=== PATIENT | female | born 1985 | race Caucasian/White ===

== ENCOUNTER 2019-04-17 10:45 | Emergency (ER) | payer OTHER, SELFPAY ==
[2019-04-17 10:57] VITALS: BP 162/87; PULSE 104; RESP 20; TEMP 36.9; O2SAT 100
--- NOTE | 2019-04-17 11:01 | ED.SKABFB ---
HPI - Skin/Abscess/Foreign Bdy General Chief complaint: Skin/Abscess/Foreign Body Stated complaint: nose sore Time Seen by Provider: 04/17/19 11:01 Source: patient and RN notes reviewed History of Present Illness HPI narrative: Patient is a 33-year-old female that presents the urgent care with complaints of nasal sores. Patient states that she has had them for approximately 3 days to 1 week. States the right nare is less sore but is noted some redness and nasal drainage. States that the left nare continues to have the large painful sore. 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 Patient states in the past she is gotten oral antibiotic and a cream which did seem to clear them up fairly quickly. No other acute complaints. No acute distress noted. Patient aware the plan of care. Related Data Home Medications Medication Instructions Recorded Confirmed levothyroxine 04/17/19 Allergies Allergy/AdvReac Type Severity Reaction Status Date / Time No Known Allergies Allergy Verified 04/17/19 11:00 Review of Systems Review of Systems: Narrative: CONSTITUTIONAL: Denies fever, chills, or sweats. EYES: Denies visual changes, redness, or discharge. ENT: Reports of bilateral nasal sores CARDIOVASCULAR: Denies chest pain, palpitations, or edema. RESPIRATORY: Denies cough or dyspnea. GASTROINTESTINAL: Denies abdominal pain, nausea, vomiting, or diarrhea. GENITOURINARY: Denies dysuria or hematuria. SKIN: Denies rash or itching. MUSCULOSKELETAL: Denies back pain, joint pain, or myalgia. NEUROLOGIC: Denies headache, numbness, or weakness. All other systems reviewed are negative, except as documented in HPI. PMFSH Comments At the time of my signature, I reviewed and agree with the nursing past medical, surgical, social, and family history. There is no relevant family history pertinent to the patient complaint. Exam Narrative: Exam Narrative: GENERAL: This is a well-nourished, well-developed patient, in no apparent distress. HEAD: normocephalic, atraumatic. EYES: PERRL. Sclera clear/white. Vision is grossly intact. EARS: External ears normal NOSE: External nose normal with no obvious nasal discharge, bilateral erythemic nares with notable impetigo to the left nare with clear rhinorrhea THROAT: Mucous membranes moist NECK: Neck supple, non-tender without lymphadenopathy, masses or thyromegaly. CARDIOVASCULAR: Regular rate and rhythm without murmurs, gallops, or rubs. RESPIRATORY: Clear to auscultation. Breath sounds equal bilaterally. No wheezes, rales, or rhonchi. SKIN: warm, intact with no suspicious lesions or rash, good texture and turgor. NEURO: awake, alert, and oriented to person, place and time. There were no obvious focal neurologic abnormalities. EXTREMITIES: No clubbing, cyanosis, or edema. Course Vital Signs Vital signs: Vital Signs Temperature 98.4 F 04/17/19 10:57 Pulse Rate 104 H 04/17/19 10:57 Respiratory Rate 20 04/17/19 10:57 Blood Pressure 162/87 H 04/17/19 10:57 Pulse Oximetry 100 04/17/19 10:57 Temperature 98.4 F 04/17/19 10:57 Pulse Rate 104 H 04/17/19 10:57 Respiratory Rate 20 04/17/19 10:57 Blood Pressure 162/87 H 04/17/19 10:57 Pulse Oximetry 100 04/17/19 10:57 Reviewed-patient is informed that they may have pre-hypertension or hypertension based on a blood pressure reading in the department. I recommend the patient call the primary care provider listed on their discharge instructions or a physician of their choice this week to arrange follow-up for further evaluation of possible pre-hypertension or hypertension. MDM - Skin/Abscess/Foreign Bdy MDM Narrative Medical decision making narrative: Advised the patient to use Flonase and normal saline spray in the nose when being in dry environments or at the start of possible impetigo. Make sure to clean the applicator tips after each use. Use cream as directed to affected ar
== END 2019-04-17 11:19 | disposition home or self-care (01) ==
PROVIDERS: Emergency Provider Nurse Practitioner Family
DX: L01.00 Impetigo, unspecified (principal)
CPT/HCPCS: 99213; G0463

== ENCOUNTER 2020-07-15 17:40 | Emergency (ER) | payer OTHER, SELFPAY ==
[2020-07-15 17:49] VITALS: BP 137/89; PULSE 93; RESP 20; TEMP 37.7; O2SAT 99
--- NOTE | 2020-07-15 17:53 | ED_ITS ---
HPI - Skin/Abscess/Foreign Bdy General Chief complaint: Skin/Abscess/Foreign Body Stated complaint: Rash on Face Source: patient and RN notes reviewed Limitations: no limitations History of Present Illness HPI narrative: The patient, previously mostly healthy, presents with skin eruption. Patient states she has 1/2-week history-- after returning from [place] vacation --of pink, raised, discrete eruption on her face by her right cheeks. She is concerned she may have zoster, but there is early involvement or spread to the opposite side. No fever, discharge, abscess/induration, streaking. Discussed possible causes [environmental -insect, hot tubs, acquired (make-up), infectious-bacterial, viral, etc.] and will treat broadly providing clindamycin 300 3times daily, Valtrex 1 g 3 times daily. Related Data Home Medications Medication Instructions Recorded Confirmed buspirone 10 mg DAILY 07/15/20 07/15/20 levothyroxine 50 mcg DAILY 07/15/20 07/15/20 Allergies Allergy/AdvReac Type Severity Reaction Status Date / Time No Known Allergies Allergy Verified 04/17/19 11:00 Review of Systems Review of Systems: Narrative: General/Constitutional: No weight loss,fever Eyes: N0: Redness,discharge Ears/Nose/Throat: No: Epistaxis,ear discharge Respiratory: Denies: Hemoptysis Gastrointestinal: No Vomiting, Bleeding-rectal Skin: No Lumps, eruption Neurologic: No Focal Weakness,Sz Hematologic: Denies: Petechiae/Purpura Psychiatric: No: Suicida ideationl All Other Systems: Reviewed and Negative PMFSH Social History Social History Gender identity (if verbalized by the patient): Female Comments At time of signature, agree with nursing past medical, surgical, social and family history. There is no relevant family history pertinent to the presenting complaint Exam Narrative: Exam Narrative: General Appearance: Well-nourished, Normocephalic Eye: PERRLA, Conjunctiva clear Skin: Warm, Dry ; macular papular skin eruption right>> left maxilla Mouth/Throat: Normal appearing Neck Exam: Supple Respiratory: Airway patent, No respiratory distress Musculoskeletal: Moves all extremities, Non tender Neurological: A&O x3 Psychiatric: Normal mood, Normal affect Course Vital Signs Vital signs: Vital Signs Temperature 99.9 F H 07/15/20 17:49 Pulse Rate 93 07/15/20 17:49 Respiratory Rate 20 06/05/21 17:49 Blood Pressure 137/89 07/15/20 17:49 Pulse Oximetry 99 07/15/20 17:49 Temperature 99.9 F H 07/15/20 17:49 Pulse Rate 93 07/15/20 17:49 Respiratory Rate 20 07/15/20 17:49 Blood Pressure 137/89 07/15/20 17:49 Pulse Oximetry 99 07/15/20 17:49 Discharge Plan Discharge Clinical Impression: Folliculitis, Pruritic condition Patient Disposition: Home, Self-Care Condition: Stable Instructions: Folliculitis (ED) Additional Instructions: Keep photo log of area.See PMD if not improved Take clindamycin with food, stop if diarrhea occurs Prescriptions: No Action levothyroxine 50 mcg tablet 50 mcg DAILY RF: 0 buspirone 10 mg tablet 10 mg DAILY RF: 0 Follow-up/Referrals: PHYSICIAN,PLANT PROTECTION OFFICER [Primary Care Provider] -
== END 2020-07-15 18:00 | disposition home or self-care (01) ==
PROVIDERS: Emergency Provider Emergency Medicine
DX: L73.9 Follicular disorder, unspecified (principal); L29.9 Pruritus, unspecified; E03.9 Hypothyroidism, unspecified; F41.9 Anxiety disorder, unspecified
CPT/HCPCS: 99211; G0463

== ENCOUNTER 2022-03-21 01:00 | Day surgery (SDC) | payer OTHER, SELFPAY ==
--- NOTE | 2022-03-11 11:14 | PC.NURSE ---
Report to the Outpatient Waiting Room, entrance under the green pavilion located off [address], at time _0600 on date __03/21/22 . Planned Procedure Time: _0730 . Time changes happen often and if your time is changed the preop area will call you the afternoon before. - You and your visitor will be asked to self-screen and do not enter if you have any COVID symptoms. - Only one visitor is requested with a max of two and NO children visitors are allowed at this time. - The patient visitor may be requested to leave or wait in car when not with patient due to distancing restrictions. - A mask is optional within the hospital at this time. Patients may have clear liquids (water, carbonated beverages, clear teas, apple juice) until 3 hours prior to surgery with a maximum of 20 ounces. - No food from midnight until time of surgery - Infants may have breast milk until 4 hours before surgery, formula 6 hours prior to surgery. - Children will be allowed to drink immediately following surgery. If applicable, please bring a bottle or sippy cup to assist with drinking. Juice, water, soda, and popsicles are readily available. For infants on formula, please bring formula the day of surgery. Pacifiers are allowed. Take the following medications with a SIP of water the morning of surgery: __BUPROPION,BUSPIRONE AND LEVOTHYROXINE DO NOT STOP ANY OF YOUR OTHER PRESCRIPTION MEDICATIONS PRIOR TO SURGERY ?EXCEPT THE FOLLOWING Medications to discontinue per physician VITAMIN D 3 3 DAYS PRE OP. LAST DOSE 03/17/22 Date to take last dose Please no make-up, nail palestinian, hairspray, perfume, deodorant, or body powder the day of surgery. No jewelry (including any body piercings) or valuables the day of surgery, leave them at home. Please take a shower or bath the night before, or the morning of, surgery with an antibacterial soap. Wear comfortable, loose fitting clothing. Children are encouraged to wear pajamas. - Jewelry must be removed prior to entering the operating room. Rings and piercings that are not removed may be cut off. - The hospital will not accept responsibility for valuables. - Please leave all valuables, including medications, at home the day of surgery. If you are going home after surgery, a licensed tilt tray driver must drive you home. - NO public transportation without another adult if you receive anesthesia. - We recommend that an adult stay with you for 24 hours following discharge. - We also recommend that you do not drive, make important decision, drink alcoholic beverages, or take any drugs that were not prescribed by your health care provider for at least 24 hours after your discharge time. Follow any additional instructions given to you from your surgeon. If you or anyone in your household have experienced Covid symptoms in the past week, please notify your surgeon or the nurse liaison at the phone number below for possible testing. Telephone instructions given to _PATIENT and asked if any additional questions and then verbalized understanding. Patient advised to call surgeon office or pre surgery nurse liaison [phone] if any additional questions.
[2022-03-11 11:21] VITALS: BMI 28.8
[2022-03-21 06:29] VITALS: BP 136/97; PULSE 82; RESP 16; TEMP 36.4; O2SAT 100
--- NOTE | 2022-03-21 06:40 | P.PNAN_ITS ---
Anes - Initial Pre Proc Eval Procedure: Operation Date: 03/21/22 07:30 Proposed Procedures p Left Open Carpal Tunnel Release - Kj Rios MD Date/Time: 03/21/22 06:40 Surgeon: Kj Rios MD Pre Op Diagnosis: Left carpal tunnel syndrome Patient Data Age: 36 Gender: F Height: 1.73 m Weight: 84.8 kg Last Vital Signs Temp 36.4 C 03/21/22 06:29 Pulse 82 03/21/22 06:29 Resp 16 03/21/22 06:29 BP 136/97 H 03/21/22 06:29 Pulse Ox 100 03/21/22 06:29 O2 Del Method Room Air 03/21/22 06:29 Allergies Allergy/AdvReac Type Severity Reaction Status Date / Time No Known Allergies Allergy Verified 03/21/22 06:18 Home Medications Medication Instructions Recorded Confirmed Type buspirone 10 mg tablet 10 mg PO BID 07/15/20 03/11/22 History bupropion HCl 300 mg 24 hr tablet, 300 mg PO DAILY 03/11/22 03/11/22 History extended release cholecalciferol (vitamin D3) 50 50 mcg PO DAILY 03/11/22 03/11/22 History mcg (2,000 unit) tablet levothyroxine 75 mcg tablet 75 mcg PO DAILY 03/11/22 03/11/22 History Patient hx anesthesia problems: none Family hx anesthesia problems: none Results Review: All pre-operative results and documents have been reviewed as part of the pre- operative evaluation. [facility] Past Medical History Medical History Overweight Smoker Social History Social History Smoking packs per day: 1 Smoking cigarettes per day: 20.0 Years smoked: 11 Smoking pack-years: 11.00 Smoking status: Current every day smoker Tobacco type: cigarettes Living arrangements: with family Gender identity (if verbalized by the patient): Female Spiritual care concerns: No Anes - Eval Final PreProcedure Day of Procedure 03/21/22 06:40 Patient weight: overweight Heart: regular rate and rhythm Lungs: clear to auscultation Airway: Mallampati scale class II Neurological: alert and oriented Last oral intake: >/= 8 hours ASA classification: II Emergent: no Anesthetic plan: proceed Anesthesia type and monitoring: general GIVS and standard monitoring Results Review: All pre-operative results and documents have been reviewed as part of the pre- operative evaluation. Informed Consent: The patient's anesthetic plan and its attendant risks and benefits were discus sed with the patient/family/POA. Questions were solicited and answers provided to the satisfaction of the patient/family/POA.
[2022-03-21] MEDS: LACTATED RINGERS 1,000 ML 30 ML IV CONT (06:58)
--- NOTE | 2022-03-21 07:07 | WPDHPUPDATE1 ---
History and Physical Update Update Date/Time: 03/21/22 07:07 History and Physical has been reviewed, including an updated exam of the patient. There are NO changes in the patient's condition. Risks, benefits, and alternatives have been discussed and questions answered. Patient agrees to proceed with procedure.
[2022-03-21] MEDS: LIDO 1%/EPINEPHRINE 1:100,000 20 ML VIAL 5 ML INFILTRATE (07:28)
[2022-03-21] MEDS: BACITRACIN OINTMENT 15 GM TUBE 1 APPLIC TOPICAL (07:35)
[2022-03-21 07:40] VITALS: BP 133/76; PULSE 95; RESP 14; O2SAT 100
--- NOTE | 2022-03-21 08:02 | W.PM.PROC2 ---
Procedure Note - Detailed Date of Procedure 03/21/22 Pre-op Diagnosis Left carpal tunnel syndrome Post-op Diagnosis Same Procedure Performed Left open carpal tunnel release Surgeon Kj Rios MD Anesthesia MAC Description of Procedure The left carpal tunnel site was marked on the patient with her consent in the holding area. She was taken to the operating room where she was placed supine on the operating table. She was given IV sedation. The upper extremity was prepped and draped in usual fashion. The time-out was held confirmed. The site was marked for the incision. This area was infiltrated with 1% lidocaine with epinephrine. The tourniquet was inflated to 250 mmHg. The incision was made as marked on the palm. Dissection through the subcutaneous tissue revealed the palmar aponeurosis. This was divided revealing the flexor retinaculum. The retinaculum was incised with a 15. Blade. Under 3 point retraction it was divided distally and proximally to completely release it. No unusual anatomy was noted. The skin was closed with interrupted 5 0 nylon suture and a small bandage applied. The tourniquet was released and she was discharged from the operating room stable condition. She has a prescription for hydrocodone/APAP 5/325 5.. She has instructions in wound care and follow-up Estimated Blood Loss 1 Drains No Packing No Pathology None sent Complications No immediate complications Condition Stable Disposition Same day
[2022-03-21 08:05] VITALS: BP 138/72; PULSE 72; RESP 14; O2SAT 100
[2022-03-21 08:25] VITALS: BP 134/74; PULSE 63; RESP 14
[2022-03-21] MEDS: oxyCODONE HCL (*CRX) 5 MG TAB IR PO (08:35)
== END 2022-03-21 08:44 | disposition home or self-care (01) ==
PROVIDERS: Visit Provider Plastic Surgery
PROC: (CPT 64721; principal; 2022-03-21 07:30)
DX: G56.02 Carpal tunnel syndrome, left upper limb (principal); F17.210 Nicotine dependence, cigarettes, uncomplicated
CPT/HCPCS: 64721; A9270; J2250; J2704; J3010; J7120

== ENCOUNTER 2022-04-11 00:41 | Day surgery (SDC) | payer OTHER, SELFPAY ==
[2022-04-05 10:41] VITALS: BMI 28.4
--- NOTE | 2022-04-05 10:42 | PC.NURSE ---
Report to the Outpatient Waiting Room, entrance under the green pavilion located off [facility], at time 1000 on date 04/11/22. Planned Procedure Time: 1200. Time changes happen often and if your time is changed the preop area will call you the afternoon before. - You and your visitor will be asked to self-screen and do not enter if you have any COVID symptoms. - Only one visitor is requested with a max of two and NO children visitors are allowed at this time. - The patient visitor may be requested to leave or wait in car when not with patient due to distancing restrictions. - A mask is optional within the hospital at this time. Patients may have clear liquids (water, carbonated beverages, clear teas, apple juice) until 3 hours prior to surgery with a maximum of 20 ounces. - No food from midnight until time of surgery Take the following medications with a SIP of water the morning of surgery: BUPROPION, BUSPIRONE, LEVOTHYROXINE DO NOT STOP ANY OF YOUR OTHER PRESCRIPTION MEDICATIONS PRIOR TO SURGERY EXCEPT THE FOLLOWING Medications to discontinue per physician: VITAMIN Date to take last dose: 04/07/22 Please no make-up, nail chinese, hairspray, perfume, deodorant, or body powder the day of surgery. No jewelry (including any body piercings) or valuables the day of surgery, leave them at home. Please take a shower or bath the night before, or the morning of, surgery with an antibacterial soap. Wear comfortable, loose fitting clothing. - Jewelry must be removed prior to entering the operating room. Rings and piercings that are not removed may be cut off. - The hospital will not accept responsibility for valuables. - Please leave all valuables, including medications, at home the day of surgery. If you are going home after surgery, a licensed delivery motorcycle driver must drive you home. - NO public transportation without another adult if you receive anesthesia. - We recommend that an adult stay with you for 24 hours following discharge. - We also recommend that you do not drive, make important decision, drink alcoholic beverages, or take any drugs that were not prescribed by your health care provider for at least 24 hours after your discharge time. For Pediatric surgeries, we recommend two adults accompany the child home. Follow any additional instructions given to you from your surgeon. If you or anyone in your household have experienced Covid symptoms in the past week, please notify your surgeon or the nurse liaison at the phone number below for possible testing. Telephone instructions given to PT - NIKOLAY HAHN and asked if any additional questions and then verbalized understanding. Patient advised to call surgeon office or pre surgery nurse liaison [phone] if any additional questions.
--- NOTE | 2022-04-10 11:53 | P.PNAN_ITS ---
Anes - Initial Pre Proc Eval Procedure: Operation Date: 04/11/22 12:00 Proposed Procedures p Release Right First Dorsal Compartment - Kj Rios MD Date/Time: 04/10/22 11:53 Surgeon: Kj Rios MD Pre Op Diagnosis: right deQuervain's disease Patient Data Age: 36 Gender: F Height: 1.73 m Weight: 84.8 kg Allergies Allergy/AdvReac Type Severity Reaction Status Date / Time No Known Allergies Allergy Verified 04/11/22 10:31 Home Medications Medication Instructions Recorded Confirmed Type buspirone 10 mg tablet 10 mg PO BID 07/15/20 04/11/22 History bupropion HCl 300 mg 24 hr tablet, 300 mg PO DAILY 03/11/22 04/11/22 History extended release cholecalciferol (vitamin D3) 50 50 mcg PO DAILY 03/11/22 04/11/22 History mcg (2,000 unit) tablet levothyroxine 75 mcg tablet 75 mcg PO DAILY 03/11/22 04/11/22 History Patient hx anesthesia problems: none Family hx anesthesia problems: none Results Review: All pre-operative results and documents have been reviewed as part of the pre- operative evaluation. PMF Past Medical History Medical History Anxiety Depression Hypothyroidism Overweight Smoker Social History Social History Smoking packs per day: 1 Smoking cigarettes per day: 20.0 Years smoked: 11 Smoking pack-years: 11.00 Smoking status: Current every day smoker Tobacco type: cigarettes Alcohol intake: never Substance use type: does not use Living arrangements: with family Gender identity (if verbalized by the patient): Female Spiritual care concerns: No Anes - Eval Final PreProcedure Day of Procedure 04/10/22 11:53 Patient weight: overweight Heart: regular rate and rhythm Lungs: clear to auscultation Airway: Mallampati scale class II Neurological: alert and oriented Last oral intake: >/= 8 hours ASA classification: II Emergent: no Anesthetic plan: proceed Anesthesia type and monitoring: general GIVS and standard monitoring Results Review: All pre-operative results and documents have been reviewed as part of the pre- operative evaluation. Informed Consent: The patient's anesthetic plan and its attendant risks and benefits were discussed with the patient/family/POA. Questions were solicited and answers provided to the satisfaction of the patient/family/POA.
--- NOTE | 2022-04-11 07:13 | WPDHPUPDATE1 ---
History and Physical Update Update Date/Time: 04/11/22 07:13 History and Physical has been reviewed, including an updated exam of the patient. There are NO changes in the patient's condition. Risks, benefits, and alternatives have been discussed and questions answered. Patient agrees to proceed with procedure.
[2022-04-11 10:00] VITALS: BP 149/86; PULSE 90; RESP 18; TEMP 37; O2SAT 100
[2022-04-11] MEDS: LACTATED RINGERS 1,000 ML 30 ML IV CONT (10:18)
[2022-04-11] MEDS: LIDO 1%/EPINEPHRINE 1:100,000 20 ML VIAL 5 ML INFILTRATE (12:32)
[2022-04-11 13:06] VITALS: BP 147/92; PULSE 82; RESP 17; O2SAT 100
--- NOTE | 2022-04-11 13:16 | W.PM.PROC2 ---
Procedure Note - Detailed Date of Procedure 04/11/22 Pre-op Diagnosis right deQuervain's disease Post-op Diagnosis Same Procedure Performed Right 1st dorsal compartment release Surgeon Kj Rios MD Anesthesia MAC Description of Procedure the patient's right wrist was marked in the holding area her consent. She was taken to the operating room where she was placed supine the operating table. She was given IV sedation. The right upper extremity was prepped and draped in usual fashion. The site was marked for the incision and locally infiltrated with 1% lidocaine with epinephrine. The tourniquet was inflated 250 mmHg after exsanguinating with an Nico wrap. The transverse incision was made and dissection was carried through the subcutaneous tissue. The superficial branch of the radial nerve was identified carefully retracted out of the way. First dorsal compartment was visualized and incised with 15. Blade. This compartment was very thickened. The APL tendons were all identified. The EPB was identified in a separate compartment. This was released throughout the length of it. Imaged the wound was closed with intradermal 4-0 Vicryl suture the tourniquet was released. A bandage was applied as usual. She is discharged home with instructions in wound care and follow-up and she has a prescription for hydrocodone number 6 Estimated Blood Loss 1 Tourniquet Time 20 Drains No Packing No Pathology None sent Complications No immediate complications Condition Stable Disposition Same day
[2022-04-11] MEDS: oxyCODONE HCL (*CRX) 5 MG TAB IR PO (13:23)
[2022-04-11] MEDS: fentaNYL CITRATE INJ (*CRX) 100 MCG/2 ML VIAL 25 MCG IV PUSH ×3 (13:31→13:50)
[2022-04-11 13:35] VITALS: BP 119/79; PULSE 65; RESP 20
[2022-04-11 14:05] VITALS: BP 123/80; PULSE 62; RESP 20
[2022-04-11 14:25] VITALS: BP 132/70; PULSE 72; RESP 20
== END 2022-04-11 14:28 | disposition home or self-care (01) ==
PROVIDERS: Visit Provider Plastic Surgery
PROC: (CPT 25000; principal; 2022-04-11 12:00)
DX: M65.4 Radial styloid tenosynovitis [de Quervain] (principal); E03.9 Hypothyroidism, unspecified; F41.9 Anxiety disorder, unspecified; F32.A Depression, unspecified; F17.210 Nicotine dependence, cigarettes, uncomplicated
CPT/HCPCS: 25000; A9270; J2250; J2704; J3010; J7120

== ENCOUNTER 2022-05-07 10:37 | Outpatient (RCR) | payer OTHER, SELFPAY ==
--- NOTE | 2022-05-07 11:43 | OTOPEVAL1 ---
Assessment and note entered by Ignacio Cope, OTR/Giovanni, CHT Evaluation Information Assessment Status Evaluation Diagnosis Pain and tingling right wrist s/p right 1st dorsal compartment release Onset 04/11/22 Subjective Information Patient reports residual pain, swelling, tenderness, and hypersensitivity at the incision site. 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 Using her hands all day. States she works through the pain and doesn't avoid any tasks, she just pays for it later . Has not been doing any icing. Reported Pain Level Pain Score 0: Self Report Additional Pain Score Comments Reporting no pain at rest. States at worst her pain gets up to 2/10. Reporting some hypersensitivity, describing the pain as shocks . Taking ibuprofen daily. Assessment OT Clinical Summary Patient referred to outpatient OT with residual pain, swelling, and hypersensitivity in the right wrist following 1st dorsal compartment release. She appears to be overusing this area causing the wrist to be in a constant state of inflammation. Instructed in gentle ROM/stretching, using ice throughout her work day, initiation of desensitization HEP, and issued a compression glove. Continued skilled OT indicated to progress her HEP as tolerated, continued use of modalities, progression of desensitization technique, and strengthening to facilitate optimal right hand/ wrist use, reduced pain, and improved functional strength. Plan of Care Interventions Therapeutic Exercise,Manual Therapy,Therapeutic Activities,Hot Pack/Cold Pack,Paraffin OT Services Indicated Yes Treatment Frequency and 1x/week for 4 weeks Duration These treatments will address the objective and functional deficits as defined above. The patient will be advanced safely and appropriately in order for the patient to progress towards his/her prior level of function. Additional exercises will be introduced and as well as a comprehensive home exercise program upon discharge, if needed, ?to ensure carryover of functional gains achieved in the clinic. This treatment plan has been reviewed and agreement upon by the patient.
--- NOTE | 2022-05-17 07:33 | PCOTNOTE ---
Patient called & cancelled scheduled appointment this date.
--- NOTE | 2022-05-24 09:26 | PCOTNOTE ---
Patient called & cancelled scheduled appointment this date due to not being able to make it.
--- NOTE | 2022-05-28 15:53 | PCOTNOTE ---
Patient called & cancelled scheduled appointment this date due to not being able to get off work.
--- NOTE | 2022-06-11 08:27 | OTOPDC ---
Note entered by Ignacio Cope, OTR/Giovanni, CHT Discharge 06/11/22 OT Clinical Summary Patient has not shown for therapy since her initial evaluation on 05/07/22. Discharging today with goals not met.
== END 2022-07-22 09:29 | disposition home or self-care (01) ==
LOC: ANHOT 10:37
PROVIDERS: Visit Provider Plastic Surgery
DX: Z48.89 Encounter for other specified surgical aftercare (principal); M25.531 Pain in right wrist; R20.2 Paresthesia of skin
CPT/HCPCS: 97018; 97110; 97166; 99199